=== PATIENT | female | born 1965 | race Caucasian/White ===

== ENCOUNTER 2018-06-06 22:47 | Emergency (ER) | payer SELFPAY ==
--- NOTE | 2018-06-06 22:55 | ER Report ---
History and Physical Time Seen By MD: 22:54 HPI/ROS CHIEF COMPLAINT: Cough, chest tightness, shortness breath HISTORY OF PRESENT ILLNESS: Patient is a 52-year-old female with a history significant for smoking, here with shortness breath, chest tightness, nonproductive cough. Patient is from [place] and reportedly is here for work and notes worsening symptoms starting starting today. She does admit to having to call off a fork starting last night. Patient is afebrile, hemodynamically stable. REVIEW OF SYSTEMS: Constitutional: + fever, + chills. Eyes: No discharge. ENT: No sore throat. Cardiovascular: + chest tightness no palpitations. Respiratory: + cough, + shortness of breath. Gastrointestinal: No abdominal pain, no vomiting. Genitourinary: No hematuria. Musculoskeletal: No back pain. Skin: No rashes. Neurological: No headache. Allergies: Coded Allergies: Sulfa (Sulfonamide Antibiotics) (Verified Allergy, Intermediate, "ITCHY", 06/06/18) varenicline (Verified Adverse Reaction, Unknown, INDUCES SEIZURES, 06/06/18) Home Meds Active Scripts Prednisone (PREDNISONE) 50 Mg Tablet, 50 MG PO QDAY for 4 Days, #4 TAB Prov:JONESBK OLEARY S DO 06/07/18 Azithromycin (ZITHROMAX) 250 Mg Tablet, 1 TAB PO QDAY for 4 Days, #4 TAB Prov:BK JONES S DO 06/07/18 Constitutional Vital Sign - Last 24 Hours 06/06/18 06/06/18 06/06/18 06/06/18 22:51 22:51 23:00 23:17 Temp 98.3 Pulse 105 Resp 20 B/P (MAP) 135/99 135/99 (111) 147/85 (105) Pulse Ox 96 88 O2 Delivery Room Air 06/06/18 06/06/18 06/07/18 23:39 23:47 00:00 Pulse 102 B/P (MAP) 149/99 (116) 138/97 (111) Pulse Ox 94 Physical Exam General Appearance: The patient is alert, has no immediate need for airway protection and no signs of toxicity. Uncomfortable appearing Eyes: Pupils equal and round no pallor or injection. ENT, Mouth: Mucous membranes are moist. Respiratory: There are no retractions, lungs are clear to auscultation. Cardiovascular: Regular rate and rhythm. Gastrointestinal: Abdomen is soft and non tender, no masses, bowel sounds normal. Neurological: No focal neurological findings Skin: Warm and dry, no rashes. Musculoskeletal: Neck is supple non tender. Extremities are nontender, nonswollen and have full range of motion. DIFFERENTIAL DIAGNOSIS: After history and physical exam differential diagnosis was considered for adult fever including but not limited to viral syndromes including influenza, urinary tract infection, pneumonia and sepsis. Medical Decision Making Data Points Laboratory Hematology Test 06/06/18 23:12 Influenza Virus Type A (PCR) Negative (NEGATIVE) Influenza Virus Type B (PCR) Negative (NEGATIVE) Chemistry Test 06/06/18 23:12 Influenza Virus Type A (PCR) Negative (NEGATIVE) Influenza Virus Type B (PCR) Negative (NEGATIVE) EKG/Imaging Imaging Location: [facility] - [place] Patient: Emilie Williamson : 1965 Visit/Account:[id number] Date of Sevice: 06/06/2018 CHEST PA LAT HISTORY: Cough for one day and chest pain when breathing. COMPARISON: None. TECHNIQUE: PA and lateral views of the chest. FINDINGS: Tubes/lines/hardware: Patient is wearing a necklace. Pulmonary/pleura: Lungs are clear. There is no pneumothorax or pleural effusion. Cardiomediastinal: Cardiac and mediastinal silhouettes are within normal limits. Bones/soft tissues: No acute osseous abnormality. There is wedging of T8-L1 that appear chronic. There is a slight rightward curvature of the thoracic spine. The visible abdomen is normal. IMPRESSION: 1. No acute cardiopulmonary process. ED Course/Re-evaluation ED Course Patient is a 52-year-old female here with complaints of cough, shortness of breath, chest tightness. Influenza was negative. Chest x-ray showed no acute consolidations. Patient was started on prednisone and a Z-Walt for her COPD exacerbation. Patient had a history significant for significant smoking history. Patient is hemodynamically stable at time of discharge. Return precautions provided. PCP follow-up recommended. Decision to Disposition Date: Jun 07, 2018 Decision to Disposition Time: 00:06 Depart Departure Latest Vital Signs Vital Signs Date Time Temp Pulse Resp B/P (MAP) Pulse Ox O2 Delivery O2 Flow Rate FiO2 06/07/18 00:00 138/97 (111) 06/06/18 23:47 102 94 06/06/18 22:51 98.3 20 Room Air Impression: Primary Impression: COPD exacerbation Condition: Improved Disposition: HOME OR SELF-CARE New Scripts Prednisone (PREDNISONE) 50 Mg Tablet 50 MG PO QDAY for 4 Days, #4 TAB Prov: BK JONES DO 06/07/18 Azithromycin (ZITHROMAX) 250 Mg Tablet 1 TAB PO QDAY for 4 Days, #4 TAB Prov: BK JONES DO 06/07/18 Departure Forms: ER Transition Record, Medications Reconciliation, Off Work/School Form, School or Work Release?: Work Number of days to be released: 2 Patient Portal Information Patient Instructions: Acute Cough (GEN) Additional Instructions: Please drink plenty of water. Your influenza test was negative, chest x-ray showed no acute signs of pneumonia. Please take prednisone 1 tablet daily for the next 4 days and azithromycin 1 tablet daily for the next 4 days. Please follow-up with your family doctor in the next 7 days. Please return with worsening symptoms, shortness breath, chest pains. BK JONES DO Jun 06, 2018 22:55
--- NOTE | 2018-06-06 23:55 | RADIOLOGY IMAGING REPORT ---
FACILITY: [facility] - [place] PATIENT NAME: Emilie Williamson : 1965 MR: [id number] V: [id number] EXAM DATE: ORDERING PHYSICIAN: BK JONES TECHNOLOGIST: Location: [facility] Patient: Emilie Williamson : 1965 Visit/Account:[id number] Date of Sevice: 06/06/2018 CHEST PA LAT HISTORY: Cough for one day and chest pain when breathing. COMPARISON: None. TECHNIQUE: PA and lateral views of the chest. FINDINGS: Tubes/lines/hardware: Patient is wearing a necklace. Pulmonary/pleura: Lungs are clear. There is no pneumothorax or pleural effusion. Cardiomediastinal: Cardiac and mediastinal silhouettes are within normal limits. Bones/soft tissues: No acute osseous abnormality. There is wedging of T8-L1 that appear chronic. Ther e is a slight rightward curvature of the thoracic spine. The visible abdomen is normal. IMPRESSION: 1. No acute cardiopulmonary process. Report Dictated By: Flavia Ho at 06/06/2018 11:49 PM Report E-Signed By: Flavia Ho at 06/06/2018 11:50 PM WSN:[id number]
[2018-06-07] VITALS: BP 138/97
[2018-06-07] MEDS ORDERED: predniSONE 20 MG TAB PO ONE (00:10)
[2018-06-07] MEDS ORDERED: AZITHROMYCIN 250 MG TAB PO ONE (00:10)
[2018-06-07] MEDS ORDERED: AZIT-1 PO (00:13)
[2018-06-07] MEDS ORDERED: PRED50TA22 PO (00:13)
== END 2018-06-07 00:35 | disposition home or self-care (01) ==
LOC: ER 23:19
DX: J44.1 Chronic obstructive pulmonary disease with (acute) exacerbation (principal); Z72.0 Tobacco use
CPT/HCPCS: 71046; 87502; 99283; J7512; Q0144